=== PATIENT | male | born 1995 | race Caucasian/White ===

== ENCOUNTER 2020-04-11 21:24 | Emergency (ER) | payer SELFPAY ==
[~2020-04-11] VITALS: Ht 175.3 cm; Wt 72.6 kg
[2020-04-11 21:26] VITALS: Ht 175.3 cm; Wt 72.6 kg
[2020-04-11 22:33] VITALS: BP 145/82
== END 2020-04-11 22:33 | disposition home or self-care (01) ==
LOC: ED 21:24
DX: U07.1 COVID-19 (principal); B34.9 Viral infection, unspecified
CPT/HCPCS: U0003-CS

== ENCOUNTER 2020-04-22 14:16 | Emergency (ER) | payer SELFPAY ==
[~2020-04-22] VITALS: Ht 175.3 cm; Wt 72.6 kg
[2020-04-22 15:14] VITALS: BP 134/84; Ht 175.3 cm; Wt 72.6 kg
== END 2020-04-22 16:00 | disposition home or self-care (01) ==
LOC: ED 14:16
DX: R43.9 Unspecified disturbances of smell and taste (principal); Z13.9 Encounter for screening, unspecified